=== PATIENT | female | born 1990 | race American Indian/Alaskan Native ===

== ENCOUNTER 2016-10-07 11:51 | Emergency (ER) | payer SELFPAY ==
[2016-10-07 12:13] VITALS: BMI 27.4
[2016-10-07 12:18] VITALS: BP 115/76; PULSE 65; RESP 18; TEMP 98.7; O2SAT 98
--- NOTE | 2016-10-07 12:46 | ED PDOC ---
Arrival/HPI - General Chief Complaint: Female Genitourinary Time Seen by Provider: 10/07/16 12:27 Historian: Patient - History of Present Illness Narrative History of Present Illness (Text): 10/07/16 12:43 Patient presents to the emergency room concerned for the possibility of , states that she has had vaginal spotting for the past 2 days associated with no abdominal pain. Patient states that she really had her period on September 25 and the week prior to the onset of her menses she did a home test which was negative. She adds that she took plan B last week after having unprotected sex. Patient does state that she has a history of irregular menses when she was a teenager, which normalized in her 20s, states that she did have a normal 3 years ago and was on Depo for control until June 2015. Otherwise patient denies any fever, chills, nausea , vomiting, urinary symptoms, vaginal discharge, dyspareunia. PMD none Past Medical History - Provider Review Nursing Documentation Reviewed: Yes - Infectious Disease Hx of Infectious Diseases: None - Tetanus Immunization Tetanus Immunization: Up to Date - Past Medical History Past Medical History: No Previous - Psychiatric Hx Depression: No Hx Substance Use: No - Past Surgical History Past Surgical History: No Previous - Anesthesia Hx Anesthesia: No Hx Anesthesia Reactions: No Hx Malignant Hyperthermia: No - Suicidal Assessment Feels Threatened In Home Enviroment: No Family/Social History - Physician Review Nursing Documentation Reviewed: Yes Family/Social History: No Known Family HX Smoking Status: Never Smoked Hx Alcohol Use: Yes Frequency of alcohol use: Socially Hx Substance Use: No Hx Substance Use Treatment: No Allergies/Home Meds Allergies/Adverse Reactions: Allergies No Known Allergies Allergy (Verified 10/09/14 06:02) Review of Systems - Review of Systems Constitutional: Normal. absent: Fatigue, Weight Change, Fevers Respiratory: Normal. absent: SOB, Cough Cardiovascular: Normal. absent: Chest Pain, Palpitations Gastrointestinal: Normal. absent: Abdominal Pain, Stool Changes Genitourinary Female: Normal, Vaginal Bleeding. absent: Dysuria, Frequency, Hematuria Skin: Normal. absent: Rash, Pruritis Physical Exam - Physical Exam Narrative Physical Exam (Text): 10/07/16 12:47 GENERAL APPEARANCE: Patient is awake, alert, oriented x 3, in no acute distress. SKIN: Warm, dry; (-) cyanosis. EYES: (-) conjunctival pallor, (-) scleral icterus. ENMT: Mucous membranes moist. NECK: (-) tenderness, (-) stiffness, (-) lymphadenopathy. CHEST AND RESPIRATORY: (-) rales, (-) rhonchi, (-) wheezes; breath sounds equal bilaterally. HEART AND CARDIOVASCULAR: (-) irregularity; (-) murmur, (-) gallop. ABDOMEN AND GI: (-) distention. Bowel sounds active; (-) tenderness, (-) guarding, (-) rebound, (-) palpable masses, (-) CVA tenderness. EXTREMITIES: (-) deformity, (-) edema, (+) distal pulses. NEURO AND PSYCH: Mental status as above; (-) focal findings. Vital Signs Temp Pulse Resp BP Pulse Ox 10/07/16 11:51 98.7 F 65 18 115/76 98 Medical Decision Making ED Course and Treatment: 10/07/16 12:47 26 yo F presents for 2 day h/o vaginal spotting, unknown is she is . cg is (-). Based on history, exam and diagnostic results plan will be for patient follow- up with INTERNAL AUDIT SENIOR MANAGER. Advised to use condoms in the mean time. Patient states she fully agrees with and understands discharge instructions. States that she agrees with the plan and disposition. Verbalized and repeated discharge instructions and plan. I have given the patient opportunity to ask any additional questions. Follow up with rigging up man in 1-2 days without fail. Return to the emergency room at any time for any new or worsening symptoms. - PA / TECHNOLOGY SUPPORT ANALYST / Resident Statement MD/DO has reviewed & agrees with the documentation as recorded. Disposition/Present on Arrival - Present on Arrival Any Indicators Present on Arrival: No History of DVT/PE: No History of Uncontrolled Diabetes: No Urinary Catheter: No History of Decub. Ulcer: No History Surgical Site Infection Following: None - Disposition Have Diagnosis and Disposition been Completed?: Yes Diagnosis: test negative, Vaginal spotting Disposition: HOME/ ROUTINE Disposition Time: 12:49 Patient Plan: Discharge Condition: GOOD Discharge Instructions (ExitCare): Dysfunctional Uterine Bleeding (ED) Print Language: SYRIAC Additional Instructions: Thank you for letting us take care of you today. You were treated for vaginal spotting, test. The emergency medical care you received today was directed at your acute symptoms. Return to the Emergency Department if your symptoms worsen, do not improve, or if you have any other problems. Please call one of the physicians/clinics you have been referred to that are listed on the Patient Visit Information form that is included in your discharge packet. Bring any paperwork you were given at discharge with you along with any medications you are taking to your follow up visit. Our treatment cannot replace ongoing medical care by a primary care provider (PCP) outside of the emergency department. Thank you for allowing the [facility] team to be part of your care today. Referrals: [facility] at [facility] [Outside] - Follow up with primary
== END 2016-10-07 13:00 | disposition home or self-care (01) ==
LOC: ED 11:51
DX: Z32.02 Encounter for pregnancy test, result negative (principal); N93.9 Abnormal uterine and vaginal bleeding, unspecified